=== PATIENT | male | born 1985 | race Asian ===

== ENCOUNTER 2021-01-17 14:22 | Emergency (ER) | payer BC ==
[~2021-01-17] VITALS: Ht 170.2 cm; Wt 54.5 kg
[2021-01-17] MEDS ORDERED: normal saline 1000ML IV soln IVB ONE ×2 (14:50→15:45)
[2021-01-17] MEDS ORDERED: ondansetron/PF 4mg/2ml inj IV ONE (14:50)
[2021-01-17] MEDS ORDERED: morphine 4 MG/ML inj SYRINge IV PRN (14:50)
[2021-01-17 15:22] LABS: BASOPHILS % (AUTO) 0.4 % (0-1); EOSINOPHILS % (AUTO) 0 % (0-6); HEMOGLOBIN 14.9 g/dl (14.0-17.9); LYMPHOCYTES # (AUTO) 1.8 X10'3 (1.1-4.8); LYMPHOCYTES % (AUTO) 15.5 % (21-51); MEAN CORPUSCULAR VOLUME 78.8 FL (78-98); MEAN PLATELET VOLUME 7.2 FL (7.4-10.4); MONOCYTES # (AUTO) 0.5 X10'3 (0-0.9); MONOCYTES % (AUTO) 4.2 % (2-12); NEUTROPHILS # (AUTO) 9.2 X10'3 (1.8-7.7); NEUTROPHILS % (AUTO) 79.9 % (42-75); PLATELET COUNT 394 X10'3 (140-440); RED BLOOD COUNT 5.71 X10'6 (4.70-6.10); RED CELL DISTRIBUTION WIDTH 14.5 % (11.5-14.5); WHITE BLOOD COUNT 11.6 X10'3 (4.5-11.0)
[2021-01-17 15:37] LABS: ALANINE AMINOTRANSFERASE 32 U/L (12-78); ALKALINE PHOSPHATASE 121 IU/L (46-116); ANION GAP 15 (8-16); ASPARTATE AMINO TRANSFERASE 14 U/L (10-37); BILIRUBIN,TOTAL 0.4 MG/DL (0.1-1.0); BLOOD UREA NITROGEN 13 MG/DL (7-18); BUN/CREATININE RATIO 10.7 (5.4-32.0); CALCIUM 9.6 MG/DL (8.5-10.1); CHLORIDE 101 MMOL/L (99-107); CREATININE 1.22 MG/DL (0.60-1.10); GLUCOSE 248 MG/DL (70-104); LIPASE 240 U/L (73-393); POTASSIUM 3.8 MMOL/L (3.5-5.1); SODIUM 140 MMOL/L (135-145); TOTAL CARBON DIOXIDE 23.8 MMOL/L (24-32); TOTAL PROTEIN 8.1 G/DL (6.4-8.2); eGFR 68 ML/MIN
[2021-01-17 16:02] LABS: HEMOGLOBIN A1C 7.7 % (4.5-6.2)
[2021-01-17] MEDS ORDERED: GLIP1TAB4 PO (16:23)
[2021-01-17] MEDS ORDERED: ONDA4TAB6 PO (16:24)
--- NOTE | 2021-01-17 16:46 | NUR ---
DC held per Dr. Webber. Checking additional labs due to hyperglycemia. Ok to dc per MD. Patient given education on diabetes. New medications thoroughly reviewed. Patient encourage to f/up with pcp.
[2021-01-17 16:47] VITALS: BP 151/97
[2021-01-17 16:48] LABS: CLARITY,URINE CLEAR (Clear); COLOR,URINE YELLOW (Yellow); GLUCOSE, URINE >=1000 mg/dl (Neg); KETONES,URINE TRACE mg/dl (Neg); LEUKOCYTE ESTERASE ,URINE NEGATIVE (Neg); NITRITES, URINE NEGATIVE (Neg); OCCULT BLOOD,URINE NEGATIVE (Neg); PROTEIN,URINE NEGATIVE (Neg); UROBILINOGEN,URINE 0.2 E.U/dL (0.2-1.0)
[2021-01-17 16:54] LABS: UA COLLECTION TYPE URINAL
[2021-01-17 16:55] LABS: BACTERIA,URINE NONE SEEN /HPF (Neg); MUCUS STRANDS FEW /LPF (Neg); RBC,URINE 0-2 /HPF (0-2); SQUAMOUS EPITHELIAL CELL,UR NONE SEEN /LPF (FEW); WBC,URINE NONE SEEN /HPF (0-4)
== END 2021-01-17 16:59 | disposition home or self-care (01) ==
LOC: ER 14:23
DX: K52.9 Noninfective gastroenteritis and colitis, unspecified (principal); R10.84 Generalized abdominal pain; E11.9 Type 2 diabetes mellitus without complications; Z79.899 Other long term (current) drug therapy
CPT/HCPCS: 36415; 74176; 80053; 81001; 83036; 83690; 85025; 96361; 96374; 96375; 99284; J2270; J2405; J7030